=== PATIENT | female | born 1980 | race African-American/Black ===

== ENCOUNTER → 2021-01-16 00:41 | Outpatient (CLI) | payer BC, SELFPAY ==
[2021-01-16 22:45] LABS: SARS-CoV-2 RNA PCR Negative
== END ==
PROVIDERS: Visit Provider Surgery Plastic and Reconstructive Surgery
DX: Z01.812 Encounter for preprocedural laboratory examination (principal); Z20.822 Contact with and (suspected) exposure to COVID-19
CPT/HCPCS: C9803; U0003; U0005

== ENCOUNTER 2021-01-19 01:10 | Day surgery (SDC) | payer BC, SELFPAY ==
[2021-01-19] VITALS (11 sets, daily range): BP systolic 122–150; BP diastolic 70–96; PULSE 79–95; RESP 12–19; TEMP 37.2; O2SAT 94–100
[2021-01-19] MEDS: LACTATED RINGERS 1,000 ML 30 ML IV CONT ×2 (13:00→15:40)
--- NOTE | 2021-01-19 13:20 | WPDANESEPPF ---
Anes - Initial Pre Proc Eval Procedure: Operation Date: 01/19/21 13:30 Proposed Procedures p Bilateral Breast Implant Exchange, Capsulotomy Right Breast, Lowering of Right Inframammary Fold - Umberto Patino MD Date/Time: 01/19/21 13:20 Surgeon: Umberto Patino MD Pre Op Diagnosis: breast deformity, hx of breast CA Patient Data Age: 40 Gender: F Height: 1.74 m Weight: Allergies Allergy/AdvReac Type Severity Reaction Status Date / Time No Known Allergies Allergy Verified 01/19/21 13:23 Home Medications Medication Instructions Recorded Confirmed Type ondansetron HCl 4 mg tablet 4 mg PO Q6H PRN #30 tablet 12/30/20 01/15/21 Rx oxycodone-acetaminophen 5 mg-325 1 tablet PO Q6H PRN #15 tablet 12/31/20 01/15/21 Rx mg tablet Patient hx anesthesia problems: none Family hx anesthesia problems: none PMFSH Past Medical History Medical History Breast cancer Surgical History Surgical History History of breast reconstruction History of mastectomy Social History Social History Smoking status: Never smoker Second hand tobacco smoke exposure: No Alcohol intake: never Substance use: current Substance use type: marijuana Last use: 01/15/21 Spiritual care concerns: No Anes - Eval Final PreProcedure Day of Procedure 01/19/21 13:20 Patient weight: normal Heart: regular rate and rhythm Lungs: clear to auscultation Airway: Mallampati scale class II Neurological: alert and oriented Last oral intake: >/= 8 hours ASA classification: III Emergent: no Anesthetic plan: proceed Anesthesia type and monitoring: general LMA and standard monitoring Informed Consent: The patient's anesthetic plan and its attendant risks and benefits were discussed with the patient/family/POA. Questions were solicited and answers provided to the satisfaction of the patient/family/POA.
--- NOTE | 2021-01-19 13:48 | W.PM.PROC2 ---
Procedure Note - Detailed Date of Procedure 01/19/21 Pre-op Diagnosis breast deformity, hx of breast CA Post-op Diagnosis same Procedure Performed 1. Right breast implant exchange 2. Right breast capsulotomy / lower IMF 3. Left breast implant exchange 4. Left breast capsulotomy Surgeon Umberto Patino MD Anesthesia general Indications Patient underwent reconstruction previously. She subsequently had implant exchange for saline implants in 1999. She noticed always that she had a significant asymmetry and rippling. She felt like her right breast was much higher than her left. She has no history of radiation cancer. Her goal is to increase the right breast approximally 40-60cc compared with the left. Findings Bilateral Haven Inspira SoftTouch Right - 345cc REF [id number] SN [id number] Left - 190cc REF SSLP-190 SN [id number] Description of Procedure Preoperatively the risks, benefits, alternatives were discussed in extensive detail. I want her to be very realistic about the risks involved as well as expectations. Reviewed her goals and explained I cannot guarantee results in terms of cup size. This is very subjective and does not provide clear direction. We had a lengthy discussion about her goals. Explained I may not be able to achieve those. We do have sizers and may have to estimate the volume we place. I was very up front honest about the limitations of the procedure making sure she was well informed of what I am able to am not able to accomplish. Discussed the risks involved and how I could make her worse. We discussed adjusting the IMF and how this can lead to further loss of positioning of the implant. That she will never have perfect symmetry. Further, she may need additional procedures. This was a lengthy open-ended conversation before proceeding making sure again today answered all of her questions. She voiced understanding. Consent obtained. She was marked in the preoperative holding area with her verification. She was taken to the operating room placed supine on the operating room table. Anesthesia provided by anesthesiology and prepped and draped in a standard sterile fashion. Surgical time-out was taken. 1% lidocaine and 0.25% Marcaine with epinephrine was used to provide a field block. On the right breast I excised a portion of the scar on the anterior breast from her previous mastectomy. On the left I excised the portion IMF scar. Dissection was continued down. On the right I lower the fold to our estimates. I also completed capsulotomy on the left. I copiously irrigated with 3 L of saline solution on TUR tubing. On the right the IMF was reinforced in position with 2- Stratafix in 2 separate layers. I then used sizers to estimate the volume to place. Once we were happy with the size is as above I copiously irrigated with triple antibiotic /Betadine solution. During the procedure we did have Tegaderm nipple Brand in place. I irrigated my hands. Using a Jones funnel the implants were introduced into the pocket. I closed using 2-0 Vicryl followed by 3-0 Monocryl in a running subcuticular 4-0 Monocryl. Final closure was glue. Dressings and surgical bra were placed. Estimated Blood Loss 20 Drains No Packing No Pathology none sent Complications No immediate complications Condition stable Disposition PACU
--- NOTE | 2021-01-19 14:02 | WPDHPUPDATE1 ---
History and Physical Update Update Date/Time: 01/19/21 14:02 History and Physical has been reviewed, including an updated exam of the patient. There are NO changes in the patient's condition. Risks, benefits, and alternatives have been discussed and questions answered. Patient agrees to proceed with procedure.
[2021-01-19] MEDS: ceFAZolin 2 GM/D5W 50 ML 2 GM/50 ML BAG IVPB (14:06)
[2021-01-19] MEDS: TRANEXAMIC ACID 1,000MG/ISO100 1,000 MG/100 ML BAG 200 MG IVPB (14:06)
[2021-01-19] MEDS: BUPIVACAINE HCL 0.25% PF 30 ML VIAL INFILTRATE (14:39)
[2021-01-19] MEDS: ONDANSETRON INJ 4 MG/2 ML VIAL IV PUSH (17:43)
--- NOTE | 2021-01-19 17:52 | SUR.PHASEII ---
CORRECTION: CHARTING DONE AT 1750 WAS MEANT TO CHARTED 1736.
== END 2021-01-19 18:28 | disposition home or self-care (01) ==
PROVIDERS: Visit Provider Surgery Plastic and Reconstructive Surgery
PROC: (CPT 19342; principal; 2021-01-19 13:30)
DX: N65.0 Deformity of reconstructed breast (principal); Z85.3 Personal history of malignant neoplasm of breast; Z90.13 Acquired absence of bilateral breasts and nipples
CPT/HCPCS: 19342; J0690; J1100; J1580; J2250; J2405; J2704; J3010; J7030; J7120

== ENCOUNTER → 2021-06-05 01:52 | Outpatient (CLI) | payer BC, SELFPAY ==
[2021-06-05 14:35] LABS: SARS-CoV-2 RNA PCR Negative
== END ==
PROVIDERS: Visit Provider Surgery Plastic and Reconstructive Surgery
DX: Z01.812 Encounter for preprocedural laboratory examination (principal); Z20.822 Contact with and (suspected) exposure to COVID-19
CPT/HCPCS: C9803; U0003; U0005

== ENCOUNTER 2021-06-08 01:19 | Day surgery (SDC) | payer BC, SELFPAY ==
[2021-06-02 14:06] VITALS: BMI 19.5
--- NOTE | 2021-06-02 14:13 | PC.NURSE ---
Report to the Outpatient Waiting Room, entrance under the green pavilion located off [facility], at time 0830 on date 06/08/21. OR Time: 1030. - You will be asked a series of questions to screen for COVID 19 for your protection. - A mask is required within the hospital. - No visitors are allowed at this time. Preoperative COVID Testing Requirements: COVID TEST 06/05 AT 0910 No COVID Test needed if: (proof is required; if not received patient will have Rapid Test prior to entry) - Patient has received COVID Vaccine at least 14 days prior to procedure date or - Patient has positive COVID test result within last 90 days of surgery date. COVID Test needed if above criteria is not met If not COVID vaccinated a COVID test must be conducted within 72 hours of surgery and patient is asked to isolate self from time of testing until procedure. You will go to the [facility] for your COVID testing. The [facility] is located at the corner of [address] [facility]. You will only be called if COVID results are positive and your surgeon may reschedule your elective surgery date. Patients may have clear liquids (water, carbonated beverages, clear teas, apple juice) until 3 hours prior to surgery with a maximum of 20 ounces. - No food from midnight until time of surgery Take the following medications with a SIP of water the morning of surgery: NONE Medications to discontinue per physician: N/A Date to take last dose: N/A Please no make-up, nail iranian, hairspray, perfume, deodorant, or body powder the day of surgery. No jewelry (including any body piercings) or valuables the day of surgery, leave them at home. Please take a shower or bath the night before, or the morning of, surgery with an antibacterial soap. Wear comfortable, loose fitting clothing. - Jewelry must be removed prior to entering the operating room. Rings and piercings that are not removed may be cut off. - The hospital will not accept responsibility for valuables. - Please leave all valuables, including medications, at home the day of surgery. If you are going home after surgery, a licensed substitute bus driver must drive you home. - NO public transportation without another adult. - We recommend that an adult stay with you for 24 hours following discharge. - We also recommend that you do not drive, make important decision, drink alcoholic beverages, or take any drugs that were not prescribed by your health care provider for at least 24 hours after your discharge time. Follow any additional instructions given to you from your surgeon. Telephone instructions given to ELBERT GARCIA and asked if any additional questions and then verbalized understanding. Patient advised to call surgeon office or pre surgery nurse liaison [phone] if any additional questions.
--- NOTE | 2021-06-07 13:39 | WPDANESEPPF ---
Anes - Initial Pre Proc Eval Procedure: Operation Date: 06/08/21 10:30 Proposed Procedures p Bilateral Breast Implant Exchange - Umberto Patino MD Date/Time: 06/07/21 13:39 Surgeon: Umberto Patino MD Pre Op Diagnosis: hx breast CA Patient Data Age: 40 Gender: F Height: 1.74 m Weight: 59 kg Allergies Allergy/AdvReac Type Severity Reaction Status Date / Time No Known Allergies Allergy Verified 06/08/21 09:11 Home Medications Medication Instructions Recorded Confirmed Type docusate sodium 100 mg capsule 100 mg PO BID 7 Days #14 cap 06/02/21 Rx ondansetron HCl 4 mg tablet 4 mg PO Q6H PRN #30 tablet 06/02/21 Rx oxycodone-acetaminophen 5 mg-325 1 tablet PO Q6H PRN #30 tablet 06/02/21 06/02/21 Rx mg tablet Patient hx anesthesia problems: none Family hx anesthesia problems: none Results Review: All pre-operative results and documents have been reviewed as part of the pre-operative evaluation. [facility] Past Medical History Medical History (Updated 06/07/21 @ 13:40 by Dereje Hare MD) Breast cancer History of right breast cancer Surgical History Surgical History History of breast reconstruction History of mastectomy Social History Social History Smoking status: Never smoker Second hand tobacco smoke exposure: No Alcohol intake: never Substance use: current Substance use type: marijuana Last use: 01/15/21 Living arrangements: with family Additional living arrangements comments: SON Spiritual care concerns: No Anes - Eval Final PreProcedure Day of Procedure 06/07/21 13:39 Patient weight: normal Heart: regular rate and rhythm Lungs: clear to auscultation and normal air movement Airway: Mallampati scale class II Neurological: alert and oriented Last oral intake: >/= 8 hours ASA classification: III Emergent: no Anesthetic plan: proceed Anesthesia type and monitoring: general LMA Results Review: All pre-operative results and documents have been reviewed as part of the pre-operative evaluation. Informed Consent: The patient's anesthetic plan and its attendant risks and benefits were discussed with the patient/family/POA. Questions were solicited and answers provided to the satisfaction of the patient/family/POA.
[2021-06-08] VITALS (10 sets, daily range): BP systolic 124–151; BP diastolic 70–89; PULSE 86–95; RESP 12–20; TEMP 36.5–37; O2SAT 87–100
[2021-06-08] MEDS: LACTATED RINGERS 1,000 ML 30 ML IV CONT (09:32)
--- NOTE | 2021-06-08 10:46 | W.PM.PROC2 ---
Procedure Note - Detailed Date of Procedure 06/08/21 Pre-op Diagnosis hx breast CA Post-op Diagnosis same Procedure Performed Bilateral breast implant exchange with capsulotomy Surgeon Umberto Patino MD Anesthesia general Findings Replacement bilateral intact implants. Haven Flower SoftTouch Right REF# [id number] SN [id number] - 495cc Left REF# [id number] SN [id number] - 335cc Description of Procedure Preoperatively the risks, benefits, alternatives were discussed in extensive detail. I want her to be very realistic about the risks involved as well as expectations. I was very up front honest about how it could make her worse. She would like to increase her volume bilateral up to 300 cc however understands that we may not be able to accomplish this goal based on her natural anatomy and implant availability. She understands how we can actually make her worse. This was a lengthy open-ended conversation making sure answered all of her questions. Consent was obtained. She was marked in the preoperative holding area with her verification. Taken to the operating room placed supine on the operating room table. Anesthesia provided by anesthesiology and prepped and draped in a standard sterile fashion. Surgical time-out was taken. 1% lidocaine and 0.25% Marcaine with epinephrine was used anesthetize as a field block. Tegaderm nipple shield was placed on the left. Fifteen blade used to excise the previous scars on the right breast this was anterior left breast IMF. Dissection was continued down to the capsules identified and incised. The implants were removed bilaterally. Copious irrigated with 3 L of saline solution. Completed the capsulotomy is and verified a strict hemostasis. This was primarily lateral and superior capsulotomy with scoring to accommodate the new size implant. A sizer was placed to verify size on right side. Once verified this was removed. I copiously irrigated with triple antibiotic Betadine solution. Verified strict hemostasis. Washed my gloves. Using no-touch technique and a Jones funnel the implant was introduced into the pocket bilateral. I closed using 2-0 Vicryl followed by 3-0 Monocryl in a running subcuticular 4-0 Monocryl. Dressings were placed. Patient was awoke and taken to PACU without difficulty. All instrument sponge counts were correct at the end of the case. Estimated Blood Loss 30 Drains No Packing No Pathology none sent Complications No immediate complications Condition stable Disposition PACU
[2021-06-08] MEDS: ceFAZolin 2 GM/D5W 50 ML 2 GM/50 ML BAG IVPB (11:07)
[2021-06-08] MEDS: LIDO 1%/EPINEPHRINE 1:100,000 50 ML VIAL 40 ML INFILTRATE (11:42)
[2021-06-08] MEDS: BUPIVACAINE HCL 0.25% PF 30 ML VIAL INFILTRATE (11:43)
--- NOTE | 2021-06-08 12:20 | SUR.OPER ---
EBL 5
[2021-06-08] MEDS: fentaNYL CITRATE INJ (*CRX) 100 MCG/2 ML VIAL 25 MCG IV PUSH ×4 (13:06→13:30)
[2021-06-08] MEDS: diphenhydrAMINE HCl INJ 50 MG/ML VIAL 25 MG IV PUSH (14:01)
== END 2021-06-08 15:18 | disposition home or self-care (01) ==
PROVIDERS: Visit Provider Surgery Plastic and Reconstructive Surgery
PROC: (CPT 19342; principal; 2021-06-08 10:30)
DX: N64.89 Other specified disorders of breast (principal); Z85.3 Personal history of malignant neoplasm of breast; Z90.11 Acquired absence of right breast and nipple; F12.90 Cannabis use, unspecified, uncomplicated
CPT/HCPCS: 19380; J0690; J1170; J1200; J1580; J2250; J2704; J3010; J7120

== ENCOUNTER 2022-07-26 01:02 | Day surgery (SDC) | payer BC, SELFPAY ==
[2022-07-19 08:31] VITALS: BMI 20.7
--- NOTE | 2022-07-19 08:34 | PC.NURSE ---
Report to the Outpatient Waiting Room, entrance under the green pavilion located off [facility], at time 1330 on date 07/26/22. Planned Procedure Time: 1430. Time changes happen often and if your time is changed the preop area will call you the afternoon before. - You and your visitor will be asked to self-screen and do not enter if you have any COVID symptoms. - Only one visitor is requested with a max of two and NO children visitors are allowed at this time. - The patient visitor may be requested to leave or wait in car when not with patient due to distancing restrictions. - A mask is optional within the hospital at this time. Patients may have LIGHT BREAKFAST/LUNCH. Take the following medications with a SIP of water the morning of surgery: N/A DO NOT STOP ANY OF YOUR OTHER PRESCRIPTION MEDICATIONS PRIOR TO SURGERY EXCEPT THE FOLLOWING Medications to discontinue per physician: N/A Date to take last dose: N/A Please no make-up, nail danish, hairspray, perfume, deodorant, or body powder the day of surgery. No jewelry (including any body piercings) or valuables the day of surgery, leave them at home. Please take a shower or bath the night before, or the morning of, surgery with an antibacterial soap. Wear comfortable, loose fitting clothing. - Jewelry must be removed prior to entering the operating room. Rings and piercings that are not removed may be cut off. - The hospital will not accept responsibility for valuables. - Please leave all valuables, including medications, at home the day of surgery. YOU MAY DRIVE YOURSELF HOME FROM THE HOSPITAL. Follow any additional instructions given to you from your surgeon. If you or anyone in your household have experienced Covid symptoms in the past week, please notify your surgeon or the nurse liaison at the phone number below for possible testing. Telephone instructions given to PT Jacques BOSWELL and asked if any additional questions and then verbalized understanding. Patient advised to call surgeon office or pre surgery nurse liaison [phone] if any additional questions.
[2022-07-26] VITALS (7 sets, daily range): BP systolic 129–137; BP diastolic 60–80; PULSE 84–96; RESP 16–20; TEMP 37.5; O2SAT 100
--- NOTE | 2022-07-26 12:39 | WPDHPUPDATE1 ---
History and Physical Update Update Date/Time: 07/26/22 12:39 History and Physical has been reviewed, including an updated exam of the patient. There are NO changes in the patient's condition. Risks, benefits, and alternatives have been discussed and questions answered. Patient agrees to proceed with procedure.
--- NOTE | 2022-07-26 12:44 | P.OP_ITS ---
Procedure Note - Detailed Date of Procedure 07/26/22 Pre-op Diagnosis aquired breast deformity Post-op Diagnosis Same Procedure Performed Right nipple reconstruction Surgeon Umberto Patino MD Anesthesia General Description of Procedure Preoperatively the risks, benefits, alternatives were discussed in extensive detail. I want her to be very realistic about the risks involved as well as expectations. We discussed her current asymmetries and now she will always have asymmetry. She is very aware of these differences having a reconstructed and natural breast. She understands there is always risk of injury to the implant or loss of implant in this procedure. She understands the process with a initially larger nipple which will shrink over time. This was a lengthy open- ended conversation today answering all of her questions. She voiced a clear understanding. Consent obtained. She was marked in the preoperative holding area in the standing position. She verified the markings and states this is what we had agreed upon in the office as well as she is very confident of the position. She was taken to the operating room. Prepped and draped in a standard sterile fashion. A surgical time out was taken. 1% lidocaine and 0.25% Marcaine with epinephrine was used anesthetize locally. Fifteen blade was used to elevate a superiorly based CV flap. This was folded on itself and closed with 5 0 chromic. The donor site was closed with 3-0 Monocryl followed by 5-0 plain gut. No evidence of implant injury. Protective dressings were placed. She tolerated the procedure well. Estimated Blood Loss 5 Drains No Packing No Pathology None sent Complications No immediate complications Condition Stable Disposition PACU
[2022-07-26] MEDS: LIDO 1%/EPINEPHRINE 1:100,000 20 ML VIAL INFILTRATE (13:24)
[2022-07-26] MEDS: BUPivacaine HCL 0.25% PF 30 ML VIAL INFILTRATE (13:29)
[2022-07-26] MEDS: NACL 0.9% IRRIG POUR BOTTLE 900 ML, GENTAMICIN SULFATE INJ 160 MG, ceFAZolin 2 GM, POVI... IRRIGATION (13:31)
== END 2022-07-26 14:20 | disposition home or self-care (01) ==
PROVIDERS: Visit Provider Surgery Plastic and Reconstructive Surgery
PROC: (CPT 19350; principal; 2022-07-26 14:30)
DX: Z42.1 Encounter for breast reconstruction following mastectomy (principal); Z85.3 Personal history of malignant neoplasm of breast
CPT/HCPCS: 19350; J0690; J1580